=== PATIENT | female | born 1960 | race Caucasian/White ===

== ENCOUNTER → 2021-08-10 12:27 | Outpatient (CLI) | payer OTHER, BC, SELFPAY ==
--- NOTE | 2021-08-10 | DI.MG.S_ITS ---
BILATERAL DIGITAL SCREENING MAMMOGRAM 3D/2D WITH CAD: 08/10/2021 CLINICAL: Routine screening. Comparison is made to exams dated: 06/16/2020 mammogram, 01/01/2019 mammogram, and 07/13/2016 mammogram - outside facility. The tissue of both breasts is heterogeneously dense. This may lower the sensitivity of mammography. Current study was also evaluated with a Computer Aided Detection (CAD) system. No significant masses, calcifications, or other findings are seen in either breast. There has been no significant interval change. IMPRESSION: NEGATIVE There is no mammographic evidence of malignancy. A 1 year screening mammogram is recommended. This exam was interpreted at Station ID: [id number]. NOTE: For mammograms, a report in lay terms will be sent to the patient. Approximately 15% of breast malignancies will not be visualized mammographically. In the management of a palpable breast mass, a negative mammogram must not discourage biopsy of a clinically suspicious lesion. Electronically Signed By: Darwin ibarra/regina:08/10/2021 13:46:16 letter sent: Normal Exam ACR BI-RADS Category 1: Negative 3341F
== END ==
PROVIDERS: PCP Registered Nurse Diabetes Educator; Referring Provider Registered Nurse Diabetes Educator; Visit Provider Registered Nurse Diabetes Educator
DX: Z12.31 Encounter for screening mammogram for malignant neoplasm of breast (principal)
CPT/HCPCS: 77063; 77067

== ENCOUNTER → 2022-04-13 08:25 | Outpatient (CLI) | payer OTHER, BC, SELFPAY ==
[2022-04-13 08:51] LABS: COVID19 -Nasal RAPID POSITIVE (Negative)
== END ==
PROVIDERS: PCP Registered Nurse Diabetes Educator; Visit Provider Nurse Practitioner Family
DX: U07.1 COVID-19 (principal); B97.89 Other viral agents as the cause of diseases classified elsewhere; J02.8 Acute pharyngitis due to other specified organisms
CPT/HCPCS: 87070; 87635

== ENCOUNTER → 2022-06-06 10:59 | Outpatient (CLI) | payer OTHER, BC, SELFPAY ==
[2022-06-06 12:50] LABS: COVID19 -Nasal RAPID Negative (Negative)
== END ==
PROVIDERS: PCP Registered Nurse Diabetes Educator; Visit Provider Surgery
DX: Z01.812 Encounter for preprocedural laboratory examination (principal); Z20.822 Contact with and (suspected) exposure to COVID-19
CPT/HCPCS: 87635; C9803

== ENCOUNTER 2022-06-07 10:15 | Day surgery (SDC) | payer OTHER, BC, SELFPAY ==
[2022-06-07] VITALS (7 sets, daily range): BP systolic 121–153; BP diastolic 68–87; PULSE 53–72; RESP 12–14; TEMP 36.2–36.7; O2SAT 98–100; BMI 26.2
--- NOTE | 2022-06-07 | PATH_ITS ---
[facility] Accession Number: [id number] . 01 Material submitted: . PART A: gastrointestinal site - ANTRUM BIOPSY PART B: esophagus - DISTAL ESOPHAGUS BIOPSY PART C: gastrointestinal site - CARDIA POLYP . 01 Diagnosis: A. Antrum, Biopsy: Reactive gastropathy. No Helicobacter pylori organisms on immunohistochemical stain. No intestinal metaplasia, dysplasia, or malignancy. See comment. . B. Distal Esophagus, Biopsy: Squamocolumnar junctional mucosa with mild chronic inflammation. No goblet cell metaplasia or fungal organisms on AB/PAS stain. No dysplasia or malignancy. . C. Cardia Polyp, Biopsy: Squamocolumnar junctional mucosa with changes consistent with reflux and with active inflammation. No goblet cell metaplasia or fungal organisms on AB/PAS stain. No dysplasia or malignancy. [facility] 06/12/2022 1655 Local . 01 Comment: Part A: These changes can be seen in a variety of setting such as with nonsteroidal anti-inflammatory drugs (NSAIDs), bile reflux, or adjacent to an ulcer or erosion. . 01 Electronically signed: . Hina Dye MD, Pathologist NPI- [id number] . 01 Gross description: . Part A: ANTRUM BIOPSY: Received in formalin are 2 fragment(s) of posadas, soft tissue measuring 0.3 x 0.1 x 0.1 cm to 0.1 x 0.1 x 0.1 cm submitted entirely in 1 cassette(s) Part B: DISTAL ESOPHAGUS BIOPSY: Received in formalin is 1 fragment(s) of posadas, soft tissue measuring 0.3 x 0.2 x 0.1 cm submitted entirely in 1 cassette(s) Part C: CARDIA POLYP: Received in formalin are 2 fragment(s) of posadas, soft tissue measuring 0.5 x 0.5 x 0.2 cm to 0.4 x 0.2 x 0.1 cm submitted entirely in 1 cassette(s) /CPE 06/09/2022 0557 Local . 01 Microscopic: . A. An immunohistochemical stain was performed to evaluate for Helicobacter organisms and is negative. The control stain showed appropriate reactivity. . * This test was developed and its performance characteristics determined by [facility]. It has not been cleared or approved by the U.S. Food and Drug Administration. The FDA has determined that such clearance or approval is not necessary. This test is used for clinical purposes. It should not be regarded as investigational or for research. . 01 Pathologist provided ICD-10: K29.70, K29.60, K20.80, K21.00 . 01 CPT . 731488, 790957, 529479, [id number], 775856, 823454 Performed at: 01 [facility] [address] [place] [address], [place], [place] [id number] MD Ceasar Resendiz MD Phone: [phone]
--- NOTE | 2022-06-07 10:37 | P.HP_ITS ---
History of Present Illness History of Present Illness Date Patient Seen: 06/07/22 Time Patient Seen: 10:37 Chief complaint: EGD W/POSS BX Narrative: I reviewed the recent note by Dr. Quintana. No significant changes. Patient History Medical History Chronic pain of both knees Poor eyesight Surgical History Anesthesia History of surgical removal of ganglion cyst (~1989) History of tonsillectomy (~1992) Family & Social History Family History Father History of heart disease Mother Hx of CABG Pacemaker Brother Hyperlipidemia Hypertension Grandmother Cancer Tobacco & Substance use: Smoking Status Never smoker Meds Home Medications and Allergies Home Medications Medication Instructions Recorded Confirmed Type No Known Home Medications 01/31/21 04/13/22 History Allergies Allergy/AdvReac Type Severity Reaction Status Date / Time Sulfa (Sulfonamide Allergy Severe rash Verified 04/13/22 08:16 Antibiotics) Review of Systems Review of Systems ROS: Yes All systems reviewed with the patient and are negative except as other mantilla documented Exam Const General: cooperative HENMT Head: normal to inspection Eyes General: appearance normal, both eyes and all related structures Neck Neck: normal visual inspection Chest Chest: normal inspection of the chest Resp Effort & Inspection: normal respiratory effort Cardio Rate: regular rate GI Inspection: normal to inspection Skin General: no rashes or lesions noted Neuro General: patient alert and patient awake Extrem General: normal to inspection and no pedal edema Psych Appearance: grossly normal Assessment & Plan Assessment & Plan narrative: 62-year-old female with atypical chest pain and abdominal pain. EGD is pursued today. Time Spent With Patient Critical Care time: I spent a total of [] minutes of critical care time on this patient's care today; this time is exclusive of procedural time.
--- NOTE | 2022-06-07 10:39 | PM.PREOP ---
Pre-operative Note COVID-19 COVID-19 status: Negative Result date/Date tested (Pos, Neg/Pending): 06/06/22 Criteria for continued procedure: Possibility delay results in more complex future surgery or treatment Interval Note History & Physical reviewed/Exam performed by Physician: Yes Changes to H&P: No ASA Class (for procedural sedation): I
[2022-06-07] MEDS: SODIUM CHLORIDE 0.9% 1,000 ML 84 ML IV (10:56)
--- NOTE | 2022-06-07 11:48 | PM.OP.EGD ---
Operative Date/Time/Diagnoses Date of procedure: 06/07/22 Time of procedure: 11:48 Pre-op diagnosis: Atypical chest pain and epigastric pain Post-op diagnosis: same Procedure & Clinicians Study performed: EGD with biopsies Same procedure as scheduled: Yes Indications: Atypical chest pain and epigastric pain Surgeon: Dionisio Waldron Procedure Notes SCOAP/Timeout: Done Procedure in detail: After the risks and benefits were explained, written and verbal informed consent was obtained. The patient was brought into the procedure room and placed into the left lateral decubitus position. Please see nurse tube drawer notes for sedation details. The scope was introduced into the mouth through the bite block and advanced under direct visualization to the 2nd portion of the duodenum. The scope was slowly withdrawn carefully examining the mucosa for any defects or lesions. Retroflexed views were accomplished in the stomach. The stomach was decompressed, the scope was then removed from the patient who tolerated the procedure well. Sedation minutes: 17 Complications: none Impression: 1. Duodenum: This was visually normal from the bulb through to the 2nd portion. 2. Stomach: The patient had a mild gastropathy appreciated throughout. Much of the erythema was easier to note in the antrum and biopsies were acquired for exclusion of H pylori infection. No ulcers no mass lesions no outlet obstruction. Retroflexed views of the LES disclosed hiatal hernia with an irregular polypoid structure at the level of the cardia. At the completion of the procedure we noted that there was fairly diffuse mucosal petechiae noted throughout the gastric fundus and proximal body. 3. Esophagus: The squamocolumnar junction correlated with the top of the gastric folds. The Z-line was slightly irregular. A biopsy from the distal esophagus at the apex of 1 of these tongues of salmon-colored mucosa was acquired. GE junction was at approximately 35 cm from the incisors. There was evidence of LA grade B erosive esophagitis. In the gastric cardia there was an irregular inflamed firm polypoid structure with maximum dimension of perhaps 1 cm. The nodular aspect of this lesion appeared to extend across the GE junction. Multiple biopsies were acquired for histopathology. Endoscopic diagnosis 1. Gastropathy 2. Small sliding hiatal hernia 3. Irregular O-rkxb-rxyryerv 4. LA grade B erosive esophagitis 5. Inflamed irregular gastric cardia polyp Post-procedure Plan for aftercare: 1. Await histopathology. 2. Start daily omeprazole 20 mg [id number] 3. Surveillance endoscopy will be pursued contingent on pathology results. Disposition: PACU
== END 2022-06-07 12:45 | disposition home or self-care (01) ==
PROVIDERS: PCP Registered Nurse Diabetes Educator; Referring Provider Internal Medicine Gastroenterology; Visit Provider Internal Medicine Gastroenterology
PROC: 0DJ08ZZ Inspection of Upper Intestinal Tract, Via Natural or Artificial Opening Endoscopic (ICD-10-PCS; CPT 43235; principal; 2022-06-07 11:30)
DX: K31.9 Disease of stomach and duodenum, unspecified (principal); K44.9 Diaphragmatic hernia without obstruction or gangrene; K20.80 Other esophagitis without bleeding; K29.50 Unspecified chronic gastritis without bleeding
CPT/HCPCS: 43239; J2704

== ENCOUNTER → 2022-06-20 12:09 | Outpatient (CLI) | payer OTHER, BC, SELFPAY ==
--- NOTE | 2022-06-20 12:12 | DI.US.S_ITS ---
PROCEDURE: US SOFT TISSUE HEAD AND NECK INDICATIONS: LUMP ON RIGHT POSTERIOR NECK TECHNIQUE: Real-time scanning was performed of the neck region of interest, with image documentation. COMPARISON: None. FINDINGS: There are 2 solid-appearing calcified masses corresponding to the palpable abnormality the largest measuring up to 1.7 cm and the smaller no internal vascularity. IMPRESSION: Nonspecific calcified soft tissue masses corresponding to the palpable abnormalities. Differential would include both benign and malignant etiologies. If indicated, contrast-enhanced soft tissue MRI could be performed for further assessment. Dictated by: Raymond RAMSEY Interpreted: Patrica Pacheco MD on 06/20/2022 at 12:33 Transcribed by: MANDI on 06/20/2022 at 13:20 Approved by: Patrica Pacheco M.D. on 06/21/2022 at 8:14
== END ==
PROVIDERS: PCP Nurse Practitioner Family; Referring Provider Nurse Practitioner Family; Visit Provider Nurse Practitioner Family
DX: R22.1 Localized swelling, mass and lump, neck (principal)
CPT/HCPCS: 76536

== ENCOUNTER → 2022-07-04 12:45 | Outpatient (CLI) | payer OTHER, BC, SELFPAY | PROVIDERS: PCP Nurse Practitioner Family; Referring Provider Nurse Practitioner Family; Visit Provider Nurse Practitioner Family | DX: M85.852 Other specified disorders of bone density and structure, left thigh (principal); M85.851 Other specified disorders of bone density and structure, right thigh | CPT/HCPCS: 77080 ==

== ENCOUNTER → 2022-07-12 11:10 | Outpatient (CLI) | payer OTHER, BC, SELFPAY ==
--- NOTE | 2022-07-12 11:11 | DI.MRI.S_ITS ---
PROCEDURE: MR ORBITS FACE NECK WO/W CON INDICATIONS: Localized swelling, mass and lump, neck TECHNIQUE: Sagittal/axial/coronal T1 spin echo and STIR. After the administration of contrast, axial/coronal/sagittal T1 fast spin echo with fat saturation through the neck. COMPARISON: None. FINDINGS: Image quality: This examination is limited by involuntary motion artifact. Lymph nodes: No enlarged nodes are seen throughout the neck. Vessels: Visualized vasculature appears normal, with normal flow voids and enhancement. Neck spaces: In this patient with this given history, scrutiny is given to the area of clinical concern involving the right posterior lateral mid neck. At this site, no focal masses are seen. No enlarged lymph nodes are seen at this site. The oropharynx, nasopharynx and pharynx are unremarkable, without mucosal lesions seen. Vocal cords, false vocal cords, pyriform sinuses, epiglottis, vallecula, and tongue base all appear normal. Extramucosal spaces of the neck also appear unremarkable. Glands: The parotid and submandibular glands appear normal. Thyroid gland demonstrates no significant abnormality. Miscellaneous: Visualized brain and orbits appear normal. Lung apices appear clear. Superficial soft tissues appear normal. Visualized sinuses and mastoids appear clear. Bones: Marrow has normal overall signal. IMPRESSION: No masses or enlarged lymph nodes can be seen at the area of clinical concern involving right posterior lateral mid neck. No masses or abnormal enhancement can be seen elsewhere. Dictated by: Rui Marley M.D. on 07/12/2022 at 13:24 Approved by: Rui Marley M.D. on 07/12/2022 at 13:26
== END ==
PROVIDERS: PCP Nurse Practitioner Family; Referring Provider Nurse Practitioner Family; Visit Provider Nurse Practitioner Family
DX: R22.1 Localized swelling, mass and lump, neck (principal)
CPT/HCPCS: 70543

== ENCOUNTER → 2022-10-26 12:45 | Outpatient (CLI) | payer OTHER, BC, SELFPAY ==
--- NOTE | 2022-10-26 | DI.RAD.S_ITS ---
PROCEDURE: XR KNEE LT 3V INDICATIONS: KNEE PAIN TECHNIQUE: 3 views of the knee were acquired. COMPARISON: None. FINDINGS: Bones: Lucencies in the tibial plateau, most likely a bone cyst. No fractures or dislocations. Mild tricompartment osteoarthritic changes. No suspicious bony lesions. Soft tissues: No joint effusion. No suspicious soft tissue calcifications. IMPRESSION: 1. Mild osteoarthritis. Dictated by: Tonio Stout M.D. on 10/26/2022 at 14:45 Approved by: Tonio Stout M.D. on 10/26/2022 at 14:47
--- NOTE | 2022-10-26 | DI.MG.S_ITS ---
BILATERAL DIGITAL SCREENING MAMMOGRAM 3D/2D WITH CAD: 10/26/2022 CLINICAL: Routine screening. Comparison is made to exams dated: 08/10/2021 mammogram - [facility], 06/16/2020 mammogram, and 01/01/2019 mammogram - outside facility. Both breasts are heterogeneously dense, which may obscure small masses (category c / 51-75% glandular tissue). Current study was also evaluated with a Computer Aided Detection (CAD) system. No significant masses, calcifications, or other findings are seen in either breast. There has been no significant interval change. IMPRESSION: NEGATIVE There is no mammographic evidence of malignancy. A 1 year screening mammogram is recommended. Based on the Tyrer Cuzick model (a risk assessment model) the patient's lifetime risk is 12.0% and her 10 year risk is 5.6%. According to the ACR, ACS, and NCCN guidelines, an annual breast MRI exam along with mammogram is recommended if the patient's lifetime risk is 20% or greater. This exam was interpreted at Station ID: [id number]. NOTE: For mammograms, a report in lay terms will be sent to the patient. Approximately 15% of breast malignancies will not be visualized mammographically. In the management of a palpable breast mass, a negative mammogram must not discourage biopsy of a clinically suspicious lesion. Electronically Signed By: Darwin ibarra/regina:10/26/2022 13:58:07 letter sent: Normal Exam ACR BI-RADS Category 1: Negative 3341F
--- NOTE | 2022-10-26 | DI.RAD.S_ITS ---
PROCEDURE: XR KNEE RT 3V INDICATIONS: KNEE PAIN TECHNIQUE: 3 views of the knee were acquired. COMPARISON: [facility], CR, XR KNEE LT 3V, 10/26/2022, 13:04. FINDINGS: Bones: No fractures or dislocations. No suspicious bony lesions. Mild tricompartmental knee joint degeneration secondary to osteoarthritis. Soft tissues: No joint effusion. No suspicious soft tissue calcifications. IMPRESSION: Mild osteoarthritis. Dictated by: Tonio Stout M.D. on 10/26/2022 at 14:47 Approved by: Tonio Stout M.D. on 10/26/2022 at 14:48
== END ==
PROVIDERS: PCP Nurse Practitioner Family; Referring Provider Nurse Practitioner Family; Visit Provider Nurse Practitioner Family
DX: Z12.31 Encounter for screening mammogram for malignant neoplasm of breast (principal); M17.0 Bilateral primary osteoarthritis of knee; M25.569 Pain in unspecified knee
CPT/HCPCS: 73562; 77063; 77067

== ENCOUNTER → 2023-03-03 15:01 | Outpatient (CLI) | payer OTHER, BC, SELFPAY ==
--- NOTE | 2023-03-03 | DI.MRI.S_ITS ---
PROCEDURE: MR KNEE LT WO CON INDICATIONS: Pain in left knee TECHNIQUE: Noncontrast sagittal PD fast spin echo and T2 fast spin echo with fat saturation, sagittal 3-D FLASH with fat saturation; coronal T1 spin echo and PD fast spin echo with fat saturation, and axial PD fast spin echo with fat saturation through the knee. COMPARISON: None. FINDINGS: Image quality: Excellent. Menisci: Complex oblique tear involving posterior horn of medial meniscus extending to inferior articulating surface is seen. The lateral meniscus is intact. Peripheral displacement of medial meniscus bowing medial collateral ligament is seen. There is suggestion low-grade car showed thickness tear involving both medial and lateral posterior meniscal root ligaments. Cruciate ligaments: The anterior cruciate ligament is mildly thickened near its tibial insertion. The posterior cruciate ligament is intact. Medial structures: The medial collateral ligament appears mildly thickened. The posterior oblique ligament, semimembranosus tendon insertions, oblique popliteal ligament, and meniscocapsular junction appear intact. Visualized portions of the pes anserinus tendons appear normal. No abnormal bursal fluid. Lateral structures: The lateral collateral ligament, long and short heads of the biceps femoris tendon appear intact. The popliteus tendon appears normal; the popliteofibular ligament appears intact. Iliotibial band appears normal. Anterior structures: The quadriceps and patellar tendons appear intact. Patellar alignment is normal. No femoral trochlear dysplasia or ventral trochlear prominence. No edema in the infrapatellar fat pad. Bones and cartilage: Lobulated subcortical cystic changes involving medial periphery of proximal tibia extending to medial tibial plateau is seen and measures approximately 1.1 x 2.1 x 1.9 cm in size with significant amount of adjacent marrow edema. Mild marrow edema involving posterior aspect of patella near apex is also seen suggestive of small osteochondral injury. Apry-yr-lmlbxivx tricompartmental osteoarthritis and chondromalacia is seen most notably in medial femoral tibial compartment. No fracture or dislocation. Joint space: There is small knee joint fluid. No Holliday's cyst. Normal appearing synovial plicae are incidentally noted. IMPRESSION: 1. Complex oblique tear involving posterior horn of medial meniscus extending to inferior articulating surface. No focal lateral meniscal tear. Low-grade partial-thickness tear involving both medial and lateral posterior meniscal root ligaments. 2. Low-grade sprain/partial-thickness tear involving anterior cruciate ligament. No ACL rupture. The PCL is intact. Low-grade MCL sprain. 3. Suggestion of large osteochondral injury involving medial periphery of medial tibial plateau with subcortical cystic changes and surrounding marrow edema. Small osteochondral injury involving posterior aspect of patella near apex. Ozrz-vk-ooyanuhr tricompartmental osteoarthritis and chondromalacia most notably in medial femoral tibial compartment. No fracture or dislocation. Small amount of joint effusion. Dictated by: Murphy Flores M.D. on 03/05/2023 at 8:15 Approved by: Murphy Flores M.D. on 03/05/2023 at 9:06
== END ==
PROVIDERS: PCP Nurse Practitioner Family; Referring Provider Nurse Practitioner Family; Visit Provider Nurse Practitioner Family
DX: S83.242A Other tear of medial meniscus, current injury, left knee, initial encounter (principal); S83.282A Other tear of lateral meniscus, current injury, left knee, initial encounter; S83.512A Sprain of anterior cruciate ligament of left knee, initial encounter; S83.412A Sprain of medial collateral ligament of left knee, initial encounter; M17.12 Unilateral primary osteoarthritis, left knee; M94.262 Chondromalacia, left knee; M25.462 Effusion, left knee
CPT/HCPCS: 73721

== ENCOUNTER → 2023-06-07 08:21 | Outpatient (CLI) | payer OTHER, BC, SELFPAY ==
[2023-06-07 09:14] LABS: Cholesterol 194 mg/dL (140-199); HDL Cholesterol 55 mg/dL (40-60); LDL Cholesterol Calculated 115 mg/dL (<100); Triglycerides 118 mg/dL (35-150)
== END ==
PROVIDERS: PCP Nurse Practitioner Family; Referring Provider Nurse Practitioner Family; Visit Provider Nurse Practitioner Family
DX: E78.2 Mixed hyperlipidemia (principal)
CPT/HCPCS: 36415; 80061

== ENCOUNTER → 2024-05-02 10:08 | Outpatient (CLI) | payer MEDICARE, OTHER, SELFPAY ==
--- NOTE | 2024-05-02 | DI.US.S_ITS ---
LIMITED ULTRASOUND OF LEFT BREAST AND AXILLA: 05/02/2024 CLINICAL: Focal left breast/axillary pain. Comparison is made to exams dated: 05/02/2024 mammogram, 10/26/2022 mammogram, 08/10/2021 mammogram, 08/10/2021 mammogram - [facility], and 06/16/2020 mammogram - outside facility. Real-time ultrasound of the left breast 10 o'clock, and axilla regions was performed. Frank scale images of the real-time examination were reviewed. No significant abnormalities were seen sonographically in the left breast or the left axilla. IMPRESSION: NEGATIVE There is no sonographic evidence of malignancy. There is no abnormality seen in the left breast or in the left axilla to correspond with the area of clinical concern, however, recommend clinical follow up for persistent or worsening symptoms, or development of any clinically suspicious findings. clinical followup is recommended. A 1 year screening mammogram is recommended. Findings and recommendations were conveyed to the patient during today's evaluation. This exam was interpreted at Station ID: [id number]. Electronically Signed By: Dipesh Villalba M.D. aty/:05/02/2024 11:56:22 letter sent: Clinical Evaluation Ultrasound BI-RADS: 1 Negative
--- NOTE | 2024-05-02 | DI.MG.S_ITS ---
BILATERAL DIGITAL DIAGNOSTIC MAMMOGRAM 3D/2D: 05/02/2024 CLINICAL: Left breast pain, due bilateral. Comparison is made to exams dated: 10/26/2022 mammogram, 08/10/2021 mammogram - [facility], and 06/16/2020 mammogram - outside facility. Both breasts are heterogeneously dense, which may obscure small masses (category c / 51-75% glandular tissue). No significant masses, calcifications, or other findings are seen in either breast. IMPRESSION: INCOMPLETE: NEEDS ADDITIONAL IMAGING EVALUATION There is no abnormality seen in the left breast or in the left axilla to correspond with area of clinical concern described as diffuse pain extending into the left axilla, however, ultrasound is recommended for further evaluation and is scheduled to immediately follow this examination. Based on the Tyrer Cuzick model (a risk assessment model) the patient's lifetime risk is 11.2% and her 10 year risk is 5.6%. According to the ACR, ACS, and NCCN guidelines, an annual breast MRI exam along with mammogram is recommended if the patient's lifetime risk is 20% or greater. This exam was interpreted at Station ID: [id number]. NOTE: For mammograms, a report in lay terms will be sent to the patient. Approximately 15% of breast malignancies will not be visualized mammographically. In the management of a palpable breast mass, a negative mammogram must not discourage biopsy of a clinically suspicious lesion. Electronically Signed By: Dipesh Villalba M.D. aty/:05/02/2024 11:54:40 ACR BI-RADS Category 0: Incomplete 3340F
== END ==
PROVIDERS: PCP Nurse Practitioner Family; Referring Provider Nurse Practitioner Family; Visit Provider Nurse Practitioner Family
DX: R92.8 Other abnormal and inconclusive findings on diagnostic imaging of breast (principal); R92.333 Mammographic heterogeneous density, bilateral breasts
CPT/HCPCS: 76642; 77066; G0279

== ENCOUNTER → 2025-09-06 09:32 | Outpatient (CLI) | payer MEDICARE, OTHER, SELFPAY | PROVIDERS: PCP Nurse Practitioner Family; Visit Provider Chiropractor | DX: R39.15 Urgency of urination (principal) | CPT/HCPCS: 87086 ==

== ENCOUNTER → 2025-09-07 12:01 | Outpatient (CLI) | payer MEDICARE, OTHER, SELFPAY ==
--- NOTE | 2025-09-07 12:03 | DI.RAD.S_ITS ---
PROCEDURE: XR DEXA AXIAL SKELETON INDICATIONS: bone density screening COMPARISON: [facility], DENNISE, XR DEXA AXIAL SKELETON, 07/04/2022, 13:03. FINDINGS: Lumbar Spine: Bone mineral density 1.073 g/cm2, T score 0.2, prior T-score of 0.6. Left Femoral Neck: Bone mineral density 0.621 g/cm2, T score -2.1. Left Hip: Bone mineral density 0.812 g/cm2, T score -1.1, prior T-score of -0.8. Fracture Risk Calculation (when applicable): 10-year fracture risk of a major osteoporotic fracture 11 percent and of a hip fracture 1.8 percent. (T score greater or equal to -1.0 to: NORMAL) (T score from -1.1 to -2.4: OSTEOPENIA) (T score less than or equal to -2.5: OSTEOPOROSIS) IMPRESSION: Osteopenia. Statistical comparison cannot be made to the prior exam due to differences in technique, however the prior T-scores are reported. Follow-up guidelines as follows: Osteoporosis: Consider a repeat DEXA and Vertebral Fracture Assessment (VFA) exam in 2 years or sooner if medically necessary, to reassess this patient's status. Osteopenia: Consider a repeat DEXA in 2-3 years to reassess this patient's status, or if there is a new clinical indication. Normal: Consider a repeat DEXA in 5 years or sooner, or if there is a new clinical indication. All treatment decisions require clinical judgment and consideration of individual patient factors, including patient preferences, comorbidities, previous drug use, risk factors not captured in the FRAX model (e.g., frailty, falls, vitamin D deficiency, increased bone turnover, interval significant decline in bone density ) and possible under- or over-estimation of fracture risk by FRAX. In addition, the NOF Guide recommends that FDA-approved medical therapies be considered in postmenopausal women and men age >= 50 years with a: * Hip or vertebral (clinical or morphometric) fracture * T-score of <=-2.5 at the spine or hip * Ten-year fracture probability by FRAX of >= 3% for hip fracture or >=20% for major osteoporotic fracture. Dictated by: Amrit Loza M.D. on 09/07/2025 at 14:06 Approved by: Amrit Loza M.D. on 09/07/2025 at 14:08
== END ==
LOC: RAD 12:02
PROVIDERS: PCP Nurse Practitioner Family; Referring Provider Nurse Practitioner Family; Visit Provider Nurse Practitioner Family
DX: M85.852 Other specified disorders of bone density and structure, left thigh (principal); N95.9 Unspecified menopausal and perimenopausal disorder
CPT/HCPCS: 77080